=== PATIENT | female | born 1985 | race Caucasian/White ===

== ENCOUNTER 2020-04-14 07:00 | Inpatient (IN) | payer OTHER ==
[2020-04-14 08:30] VITALS: BMI 30.2
[2020-04-14] MEDS ORDERED: OXYTOCIN 30 UNITS in 0.9% NS 30 UNIT/500 ML INFUS.BAG IVPB ONE (08:34)
[2020-04-14] MEDS ORDERED: OXYTOCIN 30 UNITS in 0.9% NS 30 UNIT/500 ML INFUS.BAG IVPB SCH (09:00)
[2020-04-14] MEDS: ELECTROLYTE-148 SOLN 1,000 ML IV SCH ×2 (09:00→15:40)
[2020-04-14 09:14] LABS: BASO % 0.2 % (0-2.0); EOS % 0.7 % (0-4.5); HEMATOCRIT 36.4 % (32.4-45.2); HEMOGLOBIN 12.3 GM/dL (10.7-15.3); MCH 29.9 pg (25.7-33.7); MCHC 33.7 g/dl (32.0-36.0); MEAN CELL VOLUME 88.8 fl (80-96); MEAN PLT VOLUME 10.2 fl (7.5-11.1); MONO % 5.9 % (3.8-10.2); NEUT % 78.2 % (42.8-82.8); PLATELET COUNT 171 K/MM3 (134-434); RDW 13.2 % (11.6-15.6); WHITE BLOOD COUNT 10.4 K/mm3 (4.0-10.0)
[2020-04-14 09:20] LABS: INR 0.85 (0.83-1.09)
[2020-04-14 09:22] LABS: ACTIVATED PTT 24.3 SECONDS (25.2-36.5)
[2020-04-14 09:48] LABS: BLOOD UREA NITROGEN 8.8 mg/dL (7-18); CALCIUM 8.5 mg/dL (8.5-10.1); CREATININE 0.5 mg/dL (0.55-1.3); POTASSIUM 3.6 mmol/L (3.5-5.1)
[2020-04-14] MEDS ORDERED: PCA PUMP NR ONE ×2 (14:53→20:17)
[2020-04-14] MEDS: FENTANYL/BUPIVACAINE/NS/PF - PCEA - 50 ML DISP.SYRIN EP SCH (15:25)
[2020-04-14] MEDS ORDERED: FENTANYL/BUPIVACAINE/NS/PF - PCEA - 50 ML DISP.SYRIN EP ONE ×2 (15:30→20:16)
[2020-04-14] MEDS ORDERED: NALOXONE HCL 0.4 MG/ML VIAL IVPUSH PRN (15:46)
--- NOTE | 2020-04-14 20:37 | HP ---
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: Alzheimer's, CVA, Dementia, Migraine, Multiple Sclerosis, Peripheral Neuropathy, Parkinson's, Seizure, Syncope, TIA, Vertigo, Other Cardiovascular: No: AFIB, Aneurysm, Aortic Insufficiency, Aortic Stenosis, CAD, CHF, Deep Vein Thrombosis, HTN, Hyperlipdemia, [place], Mitral Insufficiency, Mitral Stenosis, Murmur, Pulmonary Hypertension, Other Pulmonary: No: Asthma, Bronchitis, Cancer, COPD, O2 Dependent, Pneumonia, Previously Intubated, Pulmonary Embolus, Pulmonary Fibrosis, Sleep Apnea, Other Gastrointestinal: No: Ascites, Cancer, Constipation, Crohn's Disease, Diverticulitis, Diverticulosis, Esophageal Varices, Gastritis, GERD, GI Bleed, Hemorrhoids, Hiatal Hernia, Inflamatory Bowel Disease, Irritable Bowel Disease, Pancreatitis, Peptic Ulcer Disease, Ulcerative Colitis, Other Hepatobiliary: No: Cirrhosis, Cholelithiasis, Cholecystitis, Choledocholithiasis, Hepatitis A, Hepatitis B, Hepatitis C, Other Renal/: No: Renal Failure, Renal Inusuff, BPH, Cancer, Hematuria, Hemodialysis, Neurogenic Bladder, Renal Calculi, UTI, Other Reproductive: No: Ectopic , Endometriosis, Fibroids, PID, Polycystic Ovary Syndrome, Postmenopausal, Other ...: 1 ...Para: 0 ...Term: 0 ...: 0 ...Spon : 0 ...Induced : 0 ...Living Children: 0 ...Multiple Gestation: 0 ...LMP: 06/28/19 ... Weeks Gestation by Dates: 40.5 ...EDC by Dates: 04/09/20 ...EDC by Sono: 04/09/20 Heme/Onc: No: Anemia, B12 Deficiency, Bleeding Disorder, Cancer, Current Chemotherapy, Current Radiation Therapy, Hemochromatosis, Hypercoaguable State, Myeloproliferative Synd, Sickle Cell Disease, Sickle Cell Trait, T hrombocytopenia, Other Infectious Disease: No: AIDS, C-Diff, Herpes Zoster, HIV, MRSA, STD's, Tuberculosis, VREF, Other Psych: No: Addictions, Anxiety, Bipolar, Depression, Panic, Psychosis, Schizophrenia, Other Musculoskeletal: No: Bursitis, Chronic low back pain, Hemiparesis, Hemiplegia, Osteoarthritis, Paraplegia, Other Rheumatology: No: Fibromyalgia, Gout, Lupus, Rheumatoid Arthritis, Sarcoidosis, Vasculitis, Other ENT: No: Allergic Rhinitis, Sinusitis, Other Endocrine: No: Daryn's Disease, Mark's Disease, Diabetes Insipidus, Diabetes Mellitus, Hyperparathyroidism, Hyperthyroidism, Hypothyroidism, Osteopenia, SIADH, Other Dermatology: No: Basal Cell, Cellulitis, Eczema, Melanoma, Psoriasis, Squamous Cell, Other - Past Surgical History Past Surgical History: No: None, AAA Repair, AICD, Amputation, Appendectomy, Arthrosocopy, AV Fistula/Graft, Bariatric Surgery, Breast Biopsy, Bypass, CABG, Carotid Endarterectomy, Cataract Removal, Cholecystectomy, Colectomy, Colon oscopy, Colostomy, Craniotomy, , Cystectomy, Hernia Repair, Hysterectomy, Ileal Conduit, Ileosotomy, Joint Replacement, Kidney Transplant, Laminectomy, Liver Transplant, Mastectomy, Nephrectomy, Oopherectomy, Orchiectomy, Permanent Pacemaker, Prostatectomy, Splenectomy, Stent, Thoracotomy, TURP, Tonsillectomy, Tubal Ligation, Upper Endoscopy, Valve Replacement, Vasectomy, Vein Stripping/Ligation Hx Myomectomy: No Hx Transabdominal Cerclage: No - Advance Directives Advance Directives: Yes: Living Will - Smoking History Smoking history: Never smoked Have you smoked in the past 12 months: No - Alcohol/Substance Use Hx Alcohol Use: No History of Substance Use: reports: None - Social History Usual Living Arrangement: Yes: With Significant Other Do you think of yourself as: Straight/Heterosexual ADL: Independent History of Recent Travel: No Home Medications - Allergies Allergies/Adverse Reactions: Allergies Allergy/AdvReac Type Severity Reaction Status Date / Time No Known Allergies Allergy Verified 04/14/20 08:15 - Home Medications Home Medications: Ambulatory Orders Pnv No.95/Ferrous Fum/Folic AC [ Caplet] 1 tab PO DAILY 04/14/20 Family Medical History Family History: Denies Review of Systems - Review of Systems Constitutional: reports: No Symptoms Eyes: reports: No Symptoms HENT: reports: No Symptoms Neck: reports: No Symptoms Cardiovascular: reports: No Symptoms Respiratory: reports: No Symptoms Gastrointestinal: reports: No Symptoms Genitourinary: reports: No Symptoms Breasts: reports: No Symptoms Reported Musculoskeletal: reports: No Symptoms Integumentary: reports: No Symptoms Neurological: reports: No Symptoms Endocrine: reports: No Symptoms Hematology/Lymphatic: reports: No Symptoms Psychiatric: reports: No Symptoms Physical Exam - Maternity Vital Signs: Vital Signs Temperature 98.1 F 04/14/20 19:00 Pulse Rate 58 L 04/14/20 19:45 Respiratory Rate 04/14/20 19:45 Blood Pressure 109/63 04/14/20 19:45 O2 Sat by Pulse Oximetry (%) 100 04/14/20 19:45 Constitutional: Yes: Well Nourished, No Distress, Calm Eyes: Yes: WNL, Conjunctiva Clear, EOM Intact HENT: Yes: WNL, Atraumatic, Normocephalic Neck: Yes: WNL, Supple, Trachea Midline Cardiovascular: Yes: WNL, Regular Rate and Rhythm Lungs: Clear to auscultation Breast(s): Yes: WNL - Abdominal Exam/OB Fundal Height: 40 Number of Fetuses: Single Presentation: Vertex Contractions: Yes Regularity: Irregular Intensity: Mild Monitor Mode: External Heart Rate (range): 150 Heart Rate Location: [facility] Category: I Accelerations: Uniform Decelerations: None - Vaginal Exam/OB Vaginal Bleeding: No Speculum Exam: No Dilatation (cm): 1 Effacement (%): 60 Amniotic Membrane Status: Intact Presentation: Vertex/Position Station: -1 - Physical Exam Musculoskeletal: Yes: WNL Extremities: Yes: WNL Edema: Yes Edema: LUE: 1+, RUE: 1+, LLE: 1+, RLE: 1+ Integumentary: Yes: WNL Deep Tendon Reflex Grade: Normal +2 ...Motor Strength: WNL Psychiatric: Yes: WNL, Alert, Oriented - Labs Lab Results: CBC, BMP 04/14/20 08:45 04/14/20 08:45 Hemorrhage Risk Assessment - Risk Factors Medium Risk Factors: Yes: None High Risk Factors: Yes: None Risk Score: 1 Risk Level: Medium Risk Assessment/Plan for induction as post date
--- NOTE | 2020-04-14 20:39 | PN ---
Progress Note (short form) - Note Progress Note: 2 pm, 2 cm, 60%, -1 forinduction , ballon inserted , continue pitocin, and for epidural
--- NOTE | 2020-04-14 20:40 | PN ---
Progress Note (short form) - Note Progress Note: 630 pm, ballon out, 6 to 7 cm, uc q 3 min, 80%, -1 , continue pitocin
[2020-04-14] MEDS ORDERED: DEXTROSE 5%-LACTATED RINGERS 1,000 ML IV SCH (20:45)
--- NOTE | 2020-04-14 22:59 | PN ---
Progress Note (short form) - Note Progress Note: 1030 pm, 7 to 8 cm, still -1, 80%, no cervical change, will continue labor, in 2 hrs, if no change, will consider c s
[2020-04-15] MEDS ORDERED: FENTANYL/BUPIVACAINE/NS/PF - PCEA - 50 ML DISP.SYRIN EP ONE (00:21)
[2020-04-15] MEDS ORDERED: CITRIC ACID/SODIUM CITRATE 30 ML UNIT-DOSE CUP PO ONE (00:42)
--- NOTE | 2020-04-15 00:43 | PN ---
Progress Note (short form) - Note Progress Note: 1230 am, still 7 to 8 cm, no change, -1, deccels when pushing, will proceed to c s
[2020-04-15] MEDS ORDERED: OXYTOCIN 20 UNITS in 0.9% NS 20 UNIT/1,000 ML INFUS.BAG IV ONE (00:51)
[2020-04-15] MEDS ORDERED: ONDANSETRON 4 MG/2 ML VIAL IVPUSH PRN (00:53)
[2020-04-15] MEDS ORDERED: morphine SULFATE/PF 0.5 MG/ML (2cc Syringe - QUVA) EP ONE (00:53)
[2020-04-15] MEDS ORDERED: ePHEDrine SULFATE 50 MG/1 ML AMPULE ONE (01:04)
[2020-04-15] MEDS ORDERED: ceFAZolin SODIUM 1 GM VIAL ONE (01:32)
[2020-04-15] MEDS ORDERED: OXYTOCIN 10 UNITS/ML VIAL ONE (01:32)
[2020-04-15] MEDS ORDERED: KETOROLAC TROMETHAMINE 30 MG/1 ML VIAL ONE (01:32)
[2020-04-15] MEDS ORDERED: DEXAMETHASONE SOD PHOSPHATE 4 MG/1 ML VIAL ONE (01:47)
[2020-04-15] MEDS ORDERED: MIDAZOLAM HCL 2 MG/2 ML SINGLE DOSE VIAL ONE (01:50)
[2020-04-15] MEDS ORDERED: ACETAMINOPHEN 325 MG TABLET (FP) PO PRN (03:02)
[2020-04-15] MEDS ORDERED: IBUPROFEN 800 MG/8 ML IJ IVPB PRN (03:02)
[2020-04-15] MEDS ORDERED: METHYLERGONOVINE MALEATE 0.2 MG/1 ML AMP IM PRN (03:02)
[2020-04-15] MEDS ORDERED: IBUPROFEN 600 MG TABLET (FP) PO PRN (03:02)
[2020-04-15] MEDS ORDERED: oxyCODONE HCL 5 MG TABLET PO PRN ×2 (03:02)
--- NOTE | 2020-04-15 03:10 | OP ---
Operative Note - Note: Operative Date: 04/15/20 Pre-Operative Diagnosis: failure to progress, nonreassuring fht Operation: primary lt c s Findings: op, variable deccels when pt pushed a few times, and when she moved a little Post-Operative Diagnosis: Same as Pre-op Surgeon: Esdras Salcido Arch Support Maker: Austin Aguirre Anesthesiologist/RADAR AIR TRAFFIC CONTROLLER: Jen Scherer Anesthesia: Epidural Estimated Blood Loss (mls): 500 (no complications ) Operative Report Dictated: Yes
[2020-04-15] MEDS: OXYTOCIN 20 UNITS in 0.9% NS 20 UNIT/1,000 ML INFUS.BAG IV SCH ×3 (03:15→18:59)
[2020-04-15] MEDS: IBUPROFEN 600 MG TABLET (FP) PO PRN (17:14)
[2020-04-15] MEDS: ACETAMINOPHEN 325 MG TABLET (FP) PO PRN (17:15)
[2020-04-15] MEDS: SIMETHICONE 80 MG TAB.CHEW (FP) PO PRN (17:15)
--- NOTE | 2020-04-15 20:19 | PN ---
Progress Note (short form) - Note Progress Note: 34F POD#1 c section under spinal anesthesia. no anesthesia related co mpliations. pt. doing well this evening. continue management per primary team.
[2020-04-15] MEDS: SENNOSIDES/DOCUSATE COMBO (SENNA PLUS) TABLET (UD) PO PRN (21:43)
[2020-04-16] MEDS ORDERED: BISACODYL 10 MG SUPP.RECT RC PRN (03:03)
[2020-04-16] MEDS: IBUPROFEN 600 MG TABLET (FP) PO PRN ×4 (04:37→20:18)
[2020-04-16] MEDS: ACETAMINOPHEN 325 MG TABLET (FP) PO PRN ×4 (04:38→20:19)
[2020-04-16 08:26] LABS: BASO % 0.1 % (0-2.0); EOS % 0.8 % (0-4.5); HEMATOCRIT 26.5 % (32.4-45.2); HEMOGLOBIN 8.9 GM/dL (10.7-15.3); LYMPH % 11.5 % (8-40); MCHC 33.5 g/dl (32.0-36.0); MEAN CELL VOLUME 89.6 fl (80-96); MONO % 6.1 % (3.8-10.2); NEUT % 81.5 % (42.8-82.8); PLATELET COUNT 128 K/MM3 (134-434); RBC 2.96 M/mm3 (3.60-5.2); RDW 13.4 % (11.6-15.6); WHITE BLOOD COUNT 14.2 K/mm3 (4.0-10.0)
[2020-04-16] MEDS: SIMETHICONE 80 MG TAB.CHEW (FP) PO PRN ×3 (11:54→20:18)
[2020-04-16] MEDS: SENNOSIDES/DOCUSATE COMBO (SENNA PLUS) TABLET (UD) PO PRN (20:21)
--- NOTE | 2020-04-16 20:46 | PN ---
Post Progress Note Post Day: 1 Type of Delivery: Primary C/S Vital Signs: Vital Signs Temperature 98.2 F 04/16/20 18:00 Pulse Rate 72 04/16/20 18:00 Respiratory Rate 18 04/16/20 18:00 Blood Pressure 109/71 04/16/20 18:00 O2 Sat by Pulse Oximetry (%) 97 04/16/20 11:51 Breast Exam: Yes: Soft Uterus: Yes: Fundus Firm, Fundus below umbilicus, Non-tender Incision: Yes: Sutures intact Abdomen/GI: Yes: Abdomen soft, Passing flatus, Tolerating PO Lochia: Yes: Serosa Lochia, amount: Small Extremities: Yes: Calves non-tender Perineum: Yes: Intact Activity: Ambulating (doing well, dc pt home tomorrow ) - Labs Labs: CBC WBC 14.2 K/mm3 (4.0-10.0) H 04/16/20 07:32 RBC 2.96 M/mm3 (3.60-5.2) L 04/16/20 07:32 Hgb 8.9 GM/dL (10.7-15.3) L 04/16/20 07:32 Hct 26.5 % (32.4-45.2) L D 04/16/20 07:32 MCV 89.6 fl (80-96) 04/16/20 07:32 MCH 30.0 pg (25.7-33.7) 04/16/20 07:32 MCHC 33.5 g/dl (32.0-36.0) 04/16/20 07:32 RDW 13.4 % (11.6-15.6) 04/16/20 07:32 Plt Count 128 K/MM3 (134-434) L D 04/16/20 07:32 MPV 10.0 fl (7.5-11.1) 04/16/20 07:32 Absolute Neuts (auto) 11.6 K/mm3 (1.5-8.0) H 04/16/20 07:32 Neutrophils % 81.5 % (42.8-82.8) 04/16/20 07:32 Lymphocytes % 11.5 % (8-40) D 04/16/20 07:32 Monocytes % 6.1 % (3.8-10.2) 04/16/20 07:32 Eosinophils % 0.8 % (0-4.5) 04/16/20 07:32 Basophils % 0.1 % (0-2.0) 04/16/20 07:32 Nucleated RBC % 0 % (0-0) 04/16/20 07:32
--- NOTE | 2020-04-16 20:48 | DS ---
Physical Exam-CREW BOSS Vital Signs: Vital Signs Temperature 98.2 F 04/16/20 18:00 Pulse Rate 72 04/16/20 18:00 Respiratory Rate 18 04/16/20 18:00 Blood Pressure 109/71 04/16/20 18:00 O2 Sat by Pulse Oximetry (%) 97 04/16/20 11:51 Constitutional: Yes: Well Nourished, No Distress, Calm Eyes: Yes: WNL, Conjunctiva Clear, EOM Intact HENT: Yes: WNL, Atraumatic, Normocephalic Neck: Yes: WNL, Supple, Trachea Midline Cardiovascular: Yes: WNL, Regular Rate and Rhythm Respiratory: Yes: WNL, Regular, CTA Bilaterally Gastrointestinal: Yes: WNL, Normal Bowel Sounds, Soft ...Rectal Exam: Yes: WNL Renal/: Yes: WNL Pelvis: Yes: WNL External Genitalia: Yes: Normal Internal Exam Deferred: Yes Vaginal Exam: Yes: Normal Cervix: Yes: Normal Uterus: Yes: Normal Adnexa: Normal: Bilateral ....Post : Yes: Uterus firm, Uterus non-tender Breast(s): Yes: WNL Musculoskeletal: Yes: WNL Extremities: Yes: WNL Integumentary: Yes: WNL Wound/Incision: Yes: Clean/Dry, Well Approximated Neurological: Yes: WNL, Alert, Oriented ...Motor Strength: WNL Psychiatric: Yes: WNL, Alert, Oriented Labs: CBC, BMP 04/16/20 07:32 04/14/20 08:45 Delivery - Delivery Section: Primary Type of Anesthesia: Epidural EBL (cc): 500 Delivery, Single - Stages of Labor Date 1st Stage Initiatied: 04/14/20 Time 1st Stage Initiated: 19:00 Date of Delivery: 04/15/20 Time of Delivery: 01:37 Time Placenta Delivered: 01:40 - Condition of Infant Sandstone Splitter/Home Service Demonstrator Present: Yes Name: Terra Whitfield Gender: Female Weight: 2.977 kg Position: OP - 1 Minute Total Score: 9 5 Minutes Total Score: 9 - Emeigh Feeding Plan Initial Plan: Exclusive throughout hospitalization Discharge Summary Problems reviewed: Yes Reason For Visit: INDUCTION OF LABOR Procedures: Principal: c section Other Procedures: none Hospital Course: uneventful Health Concerns: none Condition: Good - Instructions Diet, Activity, Other Instructions: Physical activity Resume your normal everyday activity as tolerated no heavy lifting or exercise until seen by your surgeon. You may walk unlimited golden of and climb stairs. You may resume driving the car when you feel safe and comfortable behind the wheel. No sexual activity as instructed. Wound care If you have a bandage, leave it on, and keep dry for 48-72 hours. After that time discard the outer bandage. If they are tapes on the skin under the out of bandage leave them in place. They will peel off in the next 7 to 10 days. Do Not Peel them off. You may shower the day after surgery. If there are tapes present on the skin, you may shower over them. Diet There are no dietary restrictions. Eat healthy, high-fiber foods. Drink 6 to 8 glasses of liquid each day. This will assist in keeping your bowels are regular. Pain management You may take Tylenol or acetaminophen or Ibuprofen (for example, Motrin, Advil etc.) from my pain prescription medication is ordered should be taken as prescribed for moderate to severe pain. Call MD for any of the following: call dr villarreal for 2 weeks appointment Severe pain not relieved by medication Fever of 101 or higher Excessive bleeding or drainage on dressing Inability to urinate Disposition: HOME - Home Medications Comprehensive Discharge Medication List: Ambulatory Orders Pnv No.95/Ferrous Fum/Folic AC [ Caplet] 1 tab PO DAILY 04/14/20 Prescription Drug Monitoring Program (I-STOP) results: I-STOP reviewed and no issues identified
[2020-04-17] MEDS: IBUPROFEN 600 MG TABLET (FP) PO PRN (01:14)
[2020-04-17] MEDS: SIMETHICONE 80 MG TAB.CHEW (FP) PO PRN ×2 (01:14→07:31)
[2020-04-17] MEDS: ACETAMINOPHEN 325 MG TABLET (FP) PO PRN ×2 (01:15→07:32)
[2020-04-17] MEDS: FENTANYL/BUPIVACAINE/NS/PF - PCEA - 50 ML DISP.SYRIN EP SCH (07:47)
[2020-04-17 11:51] VITALS: BP 100/67; PULSE 71; TEMP 97.7
--- NOTE | 2020-04-18 10:06 | OP ---
DATE OF OPERATION: 04/15/2020 PREOPERATIVE DIAGNOSIS: Failure to progress and a nonreassuring heart rate tracing. POSTOPERATIVE DIAGNOSIS: Occiput posterior presentation. PROCEDURE: Primary low transverse section. INDICATION: This is a 34-year-old female patient 41 weeks , was brought into the hospital for induction process and the patient had Pitocin. Then patient had artificial rupture of membranes and had Cook balloon inserted and patient progressed to be 5 cm to 6 cm after about 8 hours and the balloon came out. So, patient continued in labor and patient progressed to 7 to 8 cm and patient progressed very slowly. Four or 5 hours later still progressed to be 8 cm. However, the baby's head was low. Baby was at 0 station or +1. So, patient since this afternoon has already had variable deceleration after the balloon was inserted when the patient was about 2 cm and we had to resuscitate the baby and the category 2 tracing has resolved. So, patient continued in labor without any more deceleration or category 2 tracing. So, then patient was about 8 cm. Patient started having some variable deceleration. Also, as patient was about 8 cm at 0 station for more than 4 or 5 hours, we asked the patient to see if she could move and push because the epidural was wearing off and the patient had urge to push. So, we pushed. The patient pushed for 3 times and variable decelerations became very deep again and we had to recover the patient and the baby, resuscitate the baby by turning to the side and oxygen, and patient started vomiting a lot from the pushing process. Patient had declined further pushing and all the risks and benefits were explained to the patient and patient requested at this point too. So, although I explained to the patient, patient wanted . We agreed and the patient was taken to OR for failure to progress and nonreassuring heart rate tracing and patient would not be able to tolerate the pushing process at all. PROCEDURE IN DETAIL: So, patient taken to the OR. Patient already had epidural. Patient had epidural re-topped off and the patient was placed on the operating table in the supine position. The patient's abdomen and pelvis were prepped and draped in the usual sterile manner. Pfannenstiel incision was made. Incision was made through skin, subcutaneous tissue until the fascia was nicked in the midline. The fascia was extended bilaterally. Intraperitoneal cavity was entered. Bladder flap was not created. Low transverse segment was entered. Baby delivered from OP presentation. There was no cord around the neck seen. The baby was handed over to end frazer after umbilical cord doubly clamped and cut. Placenta was removed. Uterus closed in single layer, first layer interlocking suture. Good hemostasis. Both gutters cleaned. Both ovaries, fallopian tubes, uterus were within normal limits. No complications. The peritoneum was closed. Fascia was closed. Skin was closed. Transferred to recovery room in stable condition. MD GORGE RIOS/[id number]
--- NOTE | 2020-04-23 17:47 | PATH ---
Surgical Pathology Report Patient Name: WILSON HANDY Med. Rec. #: [id number] /Age/Gender: 1985 (Age: 34) / F Account: [id number] Location: [facility] OBS/HYDRAULIC PRESS OPERATOR Taken: 04/15/2020 Received: 04/16/2020 Reported: 04/23/2020 Physicians: Esdras Salcido MD Specimen(s) Received PLACENTA Clinical History 40.5 weeks Final Diagnosis PLACENTA: THIRD TRIMESTER PLACENTA. TRIVASCULAR CORD. MEMBRANES WITH NO DIAGNOSTIC ABNORMALITIES. Electronically Signed Lalo Thomas M.D. Gross Description The specimen is received fresh labeled placenta and is a 368 gram, 17 x17 x 2.1cm. placenta with attached membranes and umbilical cord. The attached membranes are glistening, translucent, and insert marginally. The umbilical cord measures 35 cm. in length and averages 1.5 cm. in diameter. The cord inserts centrally, 5 centimeter to the nearest margin. No true knots or strictures are identified. Cut surface of the umbilical cord reveals 3 vessels. Sectioning reveals red-brown, spongy parenchyma. No lesions are identified. Correctional Classification Counselor sections are submitted in three cassettes as follows: 1- membrane rolls and umbilical cord; 2-3- full thickness sections of placenta
== END 2020-04-17 13:15 | disposition home or self-care (01) | DRG 540 ==
LOC: JLDR 07:00 → J3W 04-15 05:00
PROVIDERS: ADMIT Obstetrics & Gynecology; ATTEND Obstetrics & Gynecology
PROC: 0U7C7ZZ Dilation of Cervix, Via Natural or Artificial Opening (ICD-10-PCS; 2020-04-14)
PROC: 3E033VJ Introduction of Other Hormone into Peripheral Vein, Percutaneous Approach (ICD-10-PCS; 2020-04-14)
PROC: 10D00Z1 Extraction of Products of Conception, Low, Open Approach (ICD-10-PCS; principal; 2020-04-15)
DX: O48.0 Post-term pregnancy (principal); O76 Abnormality in fetal heart rate and rhythm complicating labor and delivery; O32.4XX0 Maternal care for high head at term, not applicable or unspecified; Z3A.40 40 weeks gestation of pregnancy; O62.0 Primary inadequate contractions; Z37.0 Single live birth
CPT/HCPCS: 36415; 80048; 85025; 85610; 85730; 86780; 86850; 86900; 86901; 87389; 88307-TC; U0003